=== PATIENT | female | born 1995 | race Hispanic/Latino ===

== ENCOUNTER → 2017-07-03 | Outpatient (CLI) | payer SELFPAY | END | disposition home or self-care (01) | LOC: YCFC.O 12:44 | PROVIDERS: ATTEND Nurse Practitioner Family | DX: R53.83 Other fatigue (principal) ==

== ENCOUNTER 2017-09-16 11:57 | Emergency (ER) | payer SELFPAY ==
[2017-09-16] MEDS ORDERED: SODIUM CHLORIDE 0.9% 1000ML 1,000 ML IVS ONE (12:48)
[2017-09-16] MEDS ORDERED: PROMETHAZINE HCL INJ 12.5 MG in SODIUM CHLORIDE 0.9% 50ML 50 ML IVPB ONE (12:48)
[2017-09-16] MEDS ORDERED: KETOROLAC TROMETHAMINE INJ 30 MG/ML VIAL IV ONE (12:48)
--- NOTE | 2017-09-16 13:02 | ED.PDOC ---
History of Present Illness - General Chief Complaint: General Stated Complaint: Nausea/Vomiting, Headache Time Seen by Provider: 09/16/17 12:33 Source: patient Exam Limitations: no limitations Additional Information: DIZZINESS, N/V, BEAUCHAMP. 4 DAYS. PT STATES STARTED 4 DAYS AGO WITH DIZZINESS AND EMESIS X 2. NO FURTHER EMESIS BUT STILL NAUSEATED WITH DIZZINESS. - History of Present Illness Severity: moderate Improving Factors: nothing Worsening Factors: movement Associated Symptoms: headaches, nausea/vomiting Allergies/Adverse Reactions: Allergies NO KNOWN ALLERGY Allergy (Verified 06/01/12 13:31) Home Medications: Ambulatory Orders Tizanidine HCl [Zanaflex] 2 mg PO TID PRN #14 cap 05/04/14 Amoxicillin & Pot Clavulanate [Augmentin] 875 mg PO BID #20 tab 02/16/15 Acetaminophen W/ Codeine [Tylenol W/ CODEINE #3] 1 ea PO Q6H #30 04/11/15 Amoxicillin & Pot Clavulanate [Augmentin] 875 mg PO BID #14 tab 04/11/15 Naproxen [Naprosyn] 500 mg PO BID #30 tab 04/11/15 Tramadol HCl [Ultram] 50 mg PO Q6H #30 tab 04/11/15 predniSONE [Prednisone] 20 mg PO QAM #5 tab 04/11/15 Azithromycin [Zithromax Z-Moris] 1 ea PO DAILY #1 pack 10/27/15 Meclizine HCl 25 mg PO Q6H #20 tab 09/16/17 Promethazine Tab [Phenergan Tablet] 25 mg PO .Q4H PRN #20 tab 09/16/17 Sulfamethoxazole-Trimethoprim [Bactrim Ds 800-160 mg] 1 tab PO BID #20 tab 09/16 Review of Systems - Review of Systems Constitutional: Denies: chills, fever EENTM: Denies: ear pain, nose pain, throat pain Respiratory: Denies: cough, short of breath Cardiology: States: no symptoms reported Gastrointestinal/Abdominal: States: nausea. Denies: abdominal pain, vomiting Genitourinary: States: no symptoms reported Musculoskeletal: States: no symptoms reported Skin: States: no symptoms reported Neurological: States: headache, other - FRONTAL TO OCCIPITAL Endocrine: States: no symptoms reported Hematologic/Lymphatic: States: no symptoms reported Past Medical History (General) - Patient Medical History Hx Diabetes: No - Vaccination History Hx Tetanus, Diphtheria Vaccination: Yes Hx Influenza Vaccination: No Hx Pneumococcal Vaccination: No - Social History Hx Tobacco Use: No Hx Alcohol Use: No Hx Substance Use: No Hx Substance Use Treatment: No Hx Depression: No - Female History Patient : No Expected Date of Delivery:: 05/19/16 Family Medical History - Family History Sister Family History: No Known Living Status: Still Living Physical Exam - Physical Exam General Appearance: Alert, No apparent distress Eye Exam: bilateral normal Ears, Nose, Throat: hearing grossly normal, normal ENT inspection, normal pharynx, other - TM'S NL, TENDER FRONTAL AND MAXILLARY SINUSES, NO ETHMOID TTP Neck: non-tender, full range of motion, supple Respiratory: lungs clear, no respiratory distress Cardiovascular/Chest: regular rate, rhythm, no murmur Gastrointestinal/Abdominal: normal bowel sounds, soft, no organomegaly Back Exam: normal inspection, no CVA tenderness Extremity: normal range of motion, non-tender, normal inspection Neurologic: no motor/sensory deficits, alert, normal mood/affect, oriented x 3 Skin Exam: normal color, warm/dry Lymphatic: no adenopathy Progress - Progress Progress: 09/16/17 15:02 FEELING BETTER, TILT NEG, Departure - Departure Clinical Impression: Vertigo Sinusitis Qualifiers: Sinusitis location: frontal Chronicity: acute Recurrence: not specified as recurrent Qualified Code(s): J01.10 - Acute frontal sinusitis, unspecified Acute labyrinthitis Qualifiers: Laterality: bilateral Qualified Code(s): H83.03 - Labyrinthitis, bilateral Time of Disposition: 15:05 Disposition: Discharge to Home or Self Care Condition: Fair Departure Forms: ED Discharge - Pt. Copy, Patient Portal Self Enrollment Instructions: DI for Sinusitis, DI for Vertigo Referrals: CINTHIA SANTOYO MD/OBGYN [Primary Care Provider] - 1-2 Weeks Prescriptions: Meclizine HCl 25 mg PO Q6H #20 tab Promethazine Tab [Phenergan Tablet] 25 mg PO .Q4H PRN #20 tab PRN Reason: Nausea Sulfamethoxazole-Trimethoprim [Bactrim Ds 800-160 mg] 1 tab PO BID #20 tab Home Medications: Ambulatory Orders Tizanidine HCl [Zanaflex] 2 mg PO TID PRN #14 cap 05/04/14 Amoxicillin & Pot Clavulanate [Augmentin] 875 mg PO BID #20 tab 02/16/15 Acetaminophen W/ Codeine [Tylenol W/ CODEINE #3] 1 ea PO Q6H #30 04/11/15 Amoxicillin & Pot Clavulanate [Augmentin] 875 mg PO BID #14 tab 04/11/15 Naproxen [Naprosyn] 500 mg PO BID #30 tab 04/11/15 Tramadol HCl [Ultram] 50 mg PO Q6H #30 tab 04/11/15 predniSONE [Prednisone] 20 mg PO QAM #5 tab 04/11/15 Azithromycin [Zithromax Z-Moris] 1 ea PO DAILY #1 pack 10/27/15 Meclizine HCl 25 mg PO Q6H #20 tab 09/16/17 Promethazine Tab [Phenergan Tablet] 25 mg PO .Q4H PRN #20 tab 09/16/17 Sulfamethoxazole-Trimethoprim [Bactrim Ds 800-160 mg] 1 tab PO BID #20 tab 09/16
[2017-09-16] MEDS ORDERED: SODIUM CHLORIDE 0.9% 50ML 50 ML ONE (13:29)
[2017-09-16] MEDS ORDERED: PROMETHAZINE HCL INJ 25 MG/ML VIAL ONE (13:29)
[2017-09-16 15:06] VITALS: O2SAT 98
[2017-09-16 15:35] VITALS: BP 121/68; TEMP 98.9
== END 2017-09-16 15:35 | disposition home or self-care (01) ==
LOC: ER 11:57
DX: J01.10 Acute frontal sinusitis, unspecified (principal); H83.03 Labyrinthitis, bilateral; R42 Dizziness and giddiness
CPT/HCPCS: 36415; 80053; 84703; 85025; A4216; J1885; J2550; J7030